=== PATIENT | male | born 1995 | race Caucasian/White ===

== ENCOUNTER 2017-09-28 18:50 | Emergency (ER) | payer OTHER ==
[~2017-09-28] VITALS: Ht 188 cm; Wt 76.1 kg
[2017-09-28 18:55] VITALS: TEMP 36.8; Ht 188 cm; Wt 76.1 kg
[2017-09-28] MEDS ORDERED: AMOX500C3 PO (19:15)
--- NOTE | 2017-09-28 19:22 | EMERGENCY ROOM VISIT NOTE ---
History First contact with patient: 18:59 Chief Complaint: SINUS CONGESTION/PRESSURE Stated Complaint: FEVER, NOSE BLOCK, EAR BLOCK Nursing Triage Summary: Patient c/o cough and nasal congestion and right ear is blocked and painful. Patient states he felt hot, but did not check his temperature at home. History of Present Illness The patient is a 21 year old male who presents to the Emergency Room with complaints of right ear pain, productive cough and nasal congestion. The patient reports that his ear pain has progressively worsened over the past 12 hours. The patient reports that he has had a cold for the past 2 days. He denies any history of recurrent otitis media. The patient has had a fever at home. Patient reports a history of G6PD deficiency, and wants to be certain that the medications that he is administered is safe. The patient has been taking Advil for his pain. Review of Systems 10 system review was performed and was negative except for pertinent positives and negatives as indicated in history of present illness Past Medical/Surgical History Medical Problems: (1) G6PD deficiency Surgical Problems: (1) No history of previous surgery Family History Unremarkable Social History Smoking Status: Never Smoker Alcohol Use: none Marital Status: single Housing Status: lives with roommate Occupation Status: [employer] student Current/Historical Medications Scheduled Amoxicillin (Amoxil), 500 MG PO TID Physical Exam Vital Signs Date Time Temp Pulse Resp B/P (MAP) Pulse Ox O2 Delivery O2 Flow Rate FiO2 09/28/17 18:58 Room Air 09/28/17 18:55 36.8 103 16 133/88 95 Room Air Physical Exam CONSTITUTIONAL: Healthy and well nourished. Alert and oriented X 3 with positive affect. Patient does not appear in any acute distress. HEENT: Normocephalic, atraumatic. Pupils equal, round and reactive. Examination of the right ear shows diffuse TM bulging and erythema. Bony landmarks and light reflex are absent. No perforation noted. Examination of left ear also shows significant bulging and air-fluid levels without overriding erythema. Clear rhinorrhea is noted. OROPHARYNX: Mild posterior pharyngeal erythema without tonsillar hypertrophy or exudates. NECK: Full active range of motion without discomfort. RESPIRATORY: Clear to auscultation bilaterally with no wheezing, crackles, rhonchi or stridor. CARDIOVASCULAR: Regular rate and rhythm with no murmurs, rubs or gallops. INTEGUMENTARY: No rash or other significant dermatologic conditions noted. NEUROLOGIC: No focal neurologic deficits noted. Medical Decision & Procedures ED Course Patient history and physical exam were performed. Nurse's notes were reviewed. Vital signs were reviewed and normal. The patient now. Examination is consistent with otitis media. The patient will be provided a prescription for amoxicillin. He was encouraged to take Advil 400 mg every 4 hours as needed for pain/fever. He was encouraged to refrain from Tylenol use with his history of G6PD deficiency. I was able to find and print a table for the patient's reference of medications to avoid with his condition. He was encouraged to follow-up with [facility] for reevaluation 7-10 days. Return to the emergency department sooner with any worsening symptoms or drainage from the ear. The patient was happy with plan of care, voiced understanding of all discharge instructions, and rated his overall discomfort a 4 out of 10 at the conclusion of my exam. He refused any NSAIDs prior to discharge. Medical Decision Medication Reconcilliation Current Medication List: was personally reviewed by me Blood Pressure Screening Patient's blood pressure: Normal blood pressure Impression Primary Impression: Right otitis media with effusion Departure Information Dispostion Home / Self-Care Prescriptions Amoxicillin (AMOXIL) 500 Mg Cap 500 MG PO TID for 10 Days, #30 CAP Prov: Jone Niño PA 09/28/17 Forms HOME CARE DOCUMENTATION FORM, IMPORTANT VISIT INFORMATION Patient Instructions My [facility] Additional Instructions Complete all amoxicillin antibiotics as prescribed. Ibuprofen 400 mg every 4 hours as needed for pain/fever. Suggest follow-up with [facility] in 7-10 days for reevaluation of the ear. Return to the emergency department for any progressively worsening pain or drainage from the ear.
[2017-09-28 19:28] VITALS: BP 128/81; PULSE 94; O2SAT 96
== END 2017-09-28 19:29 | disposition home or self-care (01) ==
LOC: C.EDB 18:52 → C.EDD 19:29
DX: H65.91 Unspecified nonsuppurative otitis media, right ear (principal)